=== PATIENT | male | born 1980 | race Caucasian/White ===

== ENCOUNTER 2016-11-01 09:24 | Emergency (ER) | payer SELFPAY ==
[~2016-11-01] VITALS: Ht 193 cm; Wt 119.0 kg
[~2016-11-01 09:24] MED LIST: IBUP-238 PO; LISI-360 PO; LORT7.5T3 PO; PENI500T PO; Z.0.NO CURRENT MEDS
[2016-11-01 09:26] VITALS: BP 169/100; PULSE 72; RESP 20; TEMP 97.7; O2SAT 96
--- NOTE | 2016-11-01 09:40 | PD ---
HPI Chief Complaint: Medication Refill Request Time Seen by Provider: 09:39 Travel History International Travel<30 days: No Contact w/Intl Traveler<30days: No Traveled to known affect area: No History of Present Illness HPI 36-year-old male presents the emergency department requesting a refill of his amlodipine 5 mg by mouth daily. Patient currently does not have a local primary care physician. He has no other medical complaints currently. He is allergic to morphine and Tylenol. PFSH Past Surgical History Tonsillectomy: Yes Social History Alcohol Use: No Tobacco Use: Yes (CIGARS DAILY) Substance Use: Yes (marijuana) Allergies-Medications (Allergen,Severity, Reaction): Coded Allergies: Morphine (Verified Allergy, Severe, Tachycardia, 11/01/16) Tylenol (Verified Allergy, Severe, Shortness of Breath, 11/01/16) Reported Meds & Prescriptions Reported Meds & Active Scripts Active Motrin (Ibuprofen) 800 Mg Tab 800 Mg PO Q8 Pen Vk (Penicillin V Potassium) 500 Mg Tab 500 Mg PO QID Lisinopril 10 Mg Tab 10 Mg PO Q DAY Pen Vk (Penicillin V Potassium) 500 Mg Tab 500 Mg PO Q8 Lortab 7.5/500 (Acetaminophen/Hydrocodone Bitart) Tab 1 Tab PO Q6HPRN FOR PAIN Reported No Current Meds (Miscellaneous Medication) Misc Review of Systems Except as stated in HPI: all other systems reviewed are Neg General / Constitutional: No: Fever Eyes: No: Visual changes HENT: No: Headaches Cardiovascular: No: Chest Pain or Discomfort Respiratory: No: Shortness of Breath Gastrointestinal: No: Abdominal Pain Genitourinary: No: Dysuria Musculoskeletal: No: Pain Skin: No Rash Neurologic: No: Weakness Psychiatric: No: Depression Endocrine: No: Polydipsia Hematologic/Lymphatic: No: Easy Bruising Physical Exam Narrative GENERAL: Patient is in no acute distress. He is somewhat anxious. SKIN: Warm and dry. Normal color. Normal turgor. HEAD: Atraumatic. Normocephalic. EYES: Pupils equal and round. No scleral icterus. No injection or drainage. ENT: No nasal bleeding or discharge. Mucous membranes pink and moist. Pharynx is clear NECK: Trachea midline. Supple and nontender CARDIOVASCULAR: Regular rate and rhythm. RESPIRATORY: No accessory muscle use. Clear to auscultation. Breath sounds equal bilaterally. GASTROINTESTINAL: Abdomen soft, non-tender, nondistended. Hepatic and splenic margins not palpable. MUSCULOSKELETAL: Extremities without clubbing, cyanosis, or edema. No obvious deformities. NEUROLOGICAL: Awake and alert. No obvious cranial nerve deficits. Motor grossly within normal limits. Five out of 5 muscle strength in the arms and legs. Normal speech. PSYCHIATRIC: Appropriate mood and affect; insight and judgment normal. Data Data Last Documented VS Vital Signs Date Time Temp Pulse Resp B/P Pulse Ox O2 Delivery O2 Flow Rate FiO2 11/01/16 09:26 97.7 72 20 169/100 96 Room Air MDM Medical Decision Making Medical Screen Exam Complete: Yes Emergency Medical Condition: Yes Differential Diagnosis Hypertension. Need for blood pressure medications. Need for primary care physician. Narrative Course Patient is felt to be medically stable at time of exam. Patient has history of white coat syndrome and anxiety. Patient is to continue on his lisinopril, clonidine, and metoprolol as previous. Patient is given a prescription for amlodipine 10 mg daily. #30. Patient referred to his local primary care physician for further evaluation and treatment for his chronic hypertension. Diagnosis Primary Impression: Hypertension Qualified Code: I10 - Essential hypertension Additional Impression: Encounter for medication refill Referrals: [facility] Patient Instructions: 2 Gram Sodium Diet (DC), Chronic Hypertension (ED), General Instructions Additional Instructions: Patient is felt to be medically stable at time of exam. Patient has history of white coat syndrome and anxiety. Patient is to continue on his lisinopril, clonidine, and metoprolol as previous. Patient is given a prescription for amlodipine 10 mg daily. #30. Patient referred to his local primary care physician for further evaluation and treatment for his chronic hypertension. Med/Other Pt SpecificInfo: Prescription(s) given Disposition: 01 DISCHARGE HOME Condition: Stable Francis Weston Nov 01, 2016 09:40
[2016-11-01] MEDS ORDERED: METO50TA PO (09:49)
[2016-11-01] MEDS ORDERED: LISI40TA PO (09:49)
[2016-11-01] MEDS ORDERED: CLON0.2T PO (09:49)
[2016-11-01] MEDS ORDERED: AMLO5TAB2 PO (09:49)
[2016-11-01] MEDS ORDERED: AMLO10TA2 PO (09:55)
== END 2016-11-01 11:02 | disposition home or self-care (01) ==
LOC: NEPK 09:24
DX: Z76.0 Encounter for issue of repeat prescription (principal); I10 Essential (primary) hypertension; Z72.0 Tobacco use
CPT/HCPCS: 99281

== ENCOUNTER 2016-11-22 11:13 | Emergency (ER) | payer SELFPAY ==
[~2016-11-22] VITALS: Ht 193 cm; Wt 121.0 kg
[~2016-11-22 11:13] MED LIST changes: +AMLO10TA2 PO; +AMLO5TAB2 PO; +CLON0.2T PO; -IBUP-238 PO; -LISI-360 PO; +LISI40TA PO; -LORT7.5T3 PO; +METO50TA PO; -PENI500T PO; -Z.0.NO CURRENT MEDS
[2016-11-22 11:16] VITALS: BP 148/81; PULSE 89; RESP 16; TEMP 98.4; O2SAT 98
[2016-11-22] MEDS ORDERED: LISI40TA PO (12:04)
--- NOTE | 2016-11-22 12:04 | PD ---
HPI Chief Complaint: Dizziness Time Seen by Provider: 11:53 Travel History International Travel<30 days: No Contact w/Intl Traveler<30days: No Traveled to known affect area: No History of Present Illness HPI This is a 36-year-old male who presents to the emergency department reporting for about an hour and a half he's had a headache at the back of his head, moderate severity, associated with some blurry vision, constant. He denies any vomiting, numbness or weakness. He says he always has these headaches associated with his blood pressure medications. He says his blood pressure medications have all been mixed up ever since he [facility]. This morning he took amlodipine, metoprolol and clonidine. After taking his medicines he started to not feel well. He says he supposed to be on the Cipro 40 mg out of that for 4 days. Currently he says he feels back to normal with normal vision and no headache. He denies any chest pain or trouble breathing. [facility] Past Medical History Cardiovascular Problems: Yes Past Surgical History Tonsillectomy: Yes Social History Alcohol Use: No Tobacco Use: Yes (CIGARS DAILY) Substance Use: Yes (marijuana) Allergies-Medications (Allergen,Severity, Reaction): Coded Allergies: Morphine (Verified Allergy, Severe, Tachycardia, 11/22/16) Tylenol (Verified Allergy, Severe, Shortness of Breath, 11/22/16) Reported Meds & Prescriptions Reported Meds & Active Scripts Active Amlodipine (Amlodipine Besylate) 10 Mg Tab 10 Mg PO DAILY Reported Clonidine (Clonidine HCl) 0.2 Mg Tab 0.2 Mg PO BID Metoprolol Tartrate 50 Mg Tab 50 Mg PO DAILY Amlodipine (Amlodipine Besylate) 5 Mg Tab 5 Mg PO DAILY Lisinopril 40 Mg Tab 40 Mg PO DAILY Review of Systems Except as stated in HPI: all other systems reviewed are Neg Physical Exam Narrative GENERAL:Well appearing, no acute distress SKIN: Focused skin assessment warm and dry. HEAD: Atraumatic. Normocephalic. EYES: Pupils equal and round. No injection or drainage. ENT: Moist mucous membranes NECK: Trachea midline. CARDIOVASCULAR: Regular rate and rhythm. No murmur appreciated. RESPIRATORY: Clear to auscultation. Breath sounds equal bilaterally. GASTROINTESTINAL: Abdomen soft, non-tender, nondistended. MUSCULOSKELETAL: No obvious deformities. NEUROLOGICAL: Awake and alert. No obvious cranial nerve deficits. No dysarthria or aphasia. Moving all extremities. PSYCHIATRIC: Appropriate mood and affect; insight and judgment normal. Data Data Last Documented VS Vital Signs Date Time Temp Pulse Resp B/P Pulse Ox O2 Delivery O2 Flow Rate FiO2 11/22/16 11:16 98.4 89 16 148/81 98 MDM Medical Decision Making Medical Screen Exam Complete: Yes Emergency Medical Condition: Yes Interpretation(s) Afebrile, no tachycardia, hypertensive Differential Diagnosis Hypertensive urgency, hypertensive emergency, medication side effect Narrative Course This is a 36-year-old male who presents to the emergency department with headache and blurry vision. He has a reasonable blood pressure now 148/81. He says his symptoms have subsided. It sounds like his symptoms started right after he took clonidine. I suspect that the etiology of his symptoms. I told him to stop taking clonidine and told him I would refill his lisinopril prescription. He is amenable to this plan and I gave him referral to the [facility]. Otherwise he has a normal neurologic exam and his symptoms of subsided so I doubt this reflects intracranial hemorrhage or emergent etiology of his symptoms. Diagnosis Primary Impression: Medication side effect Qualified Code: T88.7XXA - Medication side effect, initial encounter Referrals: [facility] Patient Instructions: General Instructions Additional Instructions: If you develop severe chest pain, shortness of breath, sweating, lightheadedness , dizziness or difficulty breathing return to the emergency department immediately. Followup with your primary care physician in 2-3 days if your symptoms are not resolved. Stop taking clonidine. Start taking 40 mg of lisinopril daily. Follow up with a primary care physician as soon as possible. Med/Other Pt SpecificInfo: Prescription(s) given Scripts Lisinopril 40 Mg Tab40 Mg PO DAILY #30 TAB Ref 0 Prov:Apple Shipman MD 11/22/16 Disposition: 01 DISCHARGE HOME Condition: Stable Apple Shipman MD Nov 22, 2016 12:04
== END 2016-11-22 12:30 | disposition home or self-care (01) ==
LOC: NEPD 11:13
DX: T88.7XXA Unspecified adverse effect of drug or medicament, initial encounter (principal); Z72.0 Tobacco use; F12.90 Cannabis use, unspecified, uncomplicated
CPT/HCPCS: 99283